=== PATIENT | female | born 1985 | race Caucasian/White ===

== ENCOUNTER 2020-10-23 13:36 | Emergency (ER) | payer SELFPAY ==
[~2020-10-23] VITALS: Ht 154.9 cm; Wt 90.9 kg
[2020-10-23 13:44] VITALS: BP 135/7; Ht 154.9 cm; Wt 90.9 kg
[2020-10-23] MEDS ORDERED: [UNRECOGNIZED DRUG - OTHER] (13:45)
[2020-10-23] MEDS ORDERED: AMBIEN (13:45)
[2020-10-23] MEDS ORDERED: BACLOFEN (13:46)
[2020-10-23] MEDS ORDERED: TRAMADOL (13:46)
[2020-10-23] MEDS ORDERED: STEROID PACK (13:46)
[2020-10-23] MEDS ORDERED: TYLENOL WITH CODEINE (13:46)
== END 2020-10-23 15:39 | disposition home or self-care (01) ==
LOC: D.ER 13:36
DX: S29.012A Strain of muscle and tendon of back wall of thorax, initial encounter (principal); M79.7 Fibromyalgia; K21.9 Gastro-esophageal reflux disease without esophagitis; V89.2XXA Person injured in unspecified motor-vehicle accident, traffic, initial encounter; Y93.9 Activity, unspecified; Y92.9 Unspecified place or not applicable